=== PATIENT | female | born 1980 | race Caucasian/White ===

== ENCOUNTER 2018-06-27 18:19 | Inpatient (IN) | payer OTHER ==
[~2018-06-27] VITALS: Ht 172.7 cm; Wt 97.2 kg
[2018-06-27 19:15] VITALS: BP 131/90
--- NOTE | 2018-06-27 19:15 | NUR ---
HAND-OFF: Report given to Trudy.
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
--- NOTE | 2018-06-27 19:39 | NUR ---
ED Nurse Note: Labs drawn
[2018-06-27 19:49] LABS: BASOPHILS % (AUTO) 1.4 % (0.0-2.0); HEMATOCRIT 39.2 % (37.0-47.0); HEMOGLOBIN 13.1 G/DL (12.0-16.0); LYMPHOCYTES % (AUTO) 12.2 % (20.0-45.0); MEAN CORPUSCULAR VOLUME 84 FL (80-99); MONOCYTES % (AUTO) 6.1 % (1.0-10.0); NEUTROPHILS % (AUTO) 79.3 % (45.0-75.0); PLATELET COUNT 281 K/UL (150-450); RED BLOOD COUNT 4.68 M/UL (4.20-5.40); RED CELL DISTRIBUTION WIDTH 11.8 % (11.6-14.8); WHITE BLOOD COUNT 13.1 K/UL (4.8-10.8)
[2018-06-27 20:09] LABS: ANION GAP 8 mmol/L (5-15); BLOOD UREA NITROGEN 6 mg/dL (7-18); CALCIUM 9.3 MG/DL (8.5-10.1); CARBON DIOXIDE 29 MMOL/L (21-32); CHLORIDE 102 MMOL/L (98-107); CREATININE 0.8 MG/DL (0.55-1.30); POTASSIUM 4.1 MMOL/L (3.5-5.1); SODIUM 139 MMOL/L (136-145)
[2018-06-27] MEDS ORDERED: IBUPROFEN600 MG ORAL (20:12)
[2018-06-27] MEDS ORDERED: ACETAMINOPHEN325 M1 ORAL (20:12)
[2018-06-27] MEDS ORDERED: METHOCARBAMOL500 M1 PO (20:12)
[2018-06-27] MEDS ORDERED: DOCUSATE SODIU100 M2 ORAL (20:12)
[2018-06-27] MEDS ORDERED: ROXICODONE5 MG ORAL (20:13)
[2018-06-27 20:14] LABS: ALANINE AMINOTRANSFERASE 40 U/L (12-78); ALBUMIN 3.9 G/DL (3.4-5.0); ALBUMIN/GLOBULIN RATIO 1.2 (1.0-2.7); ALKALINE PHOSPHATASE 53 U/L (46-116); ASPARTATE AMINO TRANSFERASE 22 U/L (15-37); BILIRUBIN,TOTAL 0.4 MG/DL (0.2-1.0)
--- NOTE | 2018-06-27 20:15 | NUR ---
ED Nurse Note: Pt resting comfortably. Showing no signs of distress. Will continue to monitor.
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
--- NOTE | 2018-06-27 20:23 | NUR ---
ED Nurse Note: Pt transferred to 3E [facility]. All belongings taken with patient. Pt transferred by geoscience professor. Showing no signs of distress. VSS. Dr. Carrillo assessed in ED before transferred.
--- NOTE | 2018-06-27 20:26 | NUR ---
ED Nurse Note: Report given to ADRIANNA Arana. CT results still pending, OK from MD to take pt upstairs.
[2018-06-27 20:34] LABS: APPEARANCE,URINE CLEAR; BILIRUBIN, URINE NEGATIVE (NEGATIVE); COLOR,URINE PALE YELLOW; GLUCOSE, URINE (UA) NEGATIVE (NEGATIVE); KETONES,URINE NEGATIVE (NEGATIVE); LEUKOCYTE ESTERASE ,URINE NEGATIVE (NEGATIVE); NITRITE,URINE NEGATIVE (NEGATIVE); PH,URINE 6 (4.5-8.0); PROTEIN,URINE NEGATIVE (NEGATIVE); UROBILINOGEN,URINE NORMAL MG/DL (0.0-1.0)
--- NOTE | 2018-06-27 20:34 | NUR ---
is here now.
[2018-06-27 20:45] VITALS: BP 107/61
--- NOTE | 2018-06-27 20:45 | NUR ---
NURSE NOTES: Received report from ED RN Fariha is aaox4. VSS, neuro checks wnl. Pain 11/20 left rear head and right ribs. Excoriations noted left arm. Photos to be taken. Ibuprofen given for pain . Oriented to room. Side rails upx2, steady gait. IV site patent. Seen by Dr. Carrillo, orders placed. Bed low, call light within reach.
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
[2018-06-27] MEDS ORDERED: Tylenol #3 tab (300mg/30mg) ORAL PRN (21:15)
[2018-06-27] MEDS ORDERED: Docusate 100mg cap ORAL PRN (21:24)
--- NOTE | 2018-06-27 21:32 | Diagnostic Imaging Report ---
EXAM: XR Chest, 1 View CLINICAL HISTORY: PAIN TECHNIQUE: Frontal view of the chest. COMPARISON: None FINDINGS: Lungs: Unremarkable. No consolidation. Pleural space: Unremarkable. No pneumothorax. Heart: Unremarkable. No cardiomegaly. Mediastinum: Unremarkable. Bones/joints: Unremarkable. IMPRESSION: Normal chest x-ray.
--- NOTE | 2018-06-27 23:00 | NUR ---
NURSE NOTES: EXCORIATIONS NOTED LEFT ARM. PHOTOS UPLOADED. SILVADENE OINTMENT APPLIED PER MD ORDER, DRESSINGS CHANGED.
[2018-06-27] MEDS: ceFAZolin sod 1 GM in D5W 55 ML IVPB SCH (23:30)
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
[2018-06-28] VITALS: BP 96/58
[2018-06-28 04:00] VITALS: BP 102/54
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
--- NOTE | 2018-06-28 07:20 | NUR ---
NURSE NOTES:WALKING ROUNDS DONE WITH COCO RODAS.PATIENT SITTING IN BED,A/OX4,ROOM AIR,C/O HEADACHE MOSTLY AT THE BACK OF HER HEAD,CLAIMS ITS MORE WHEN SHES TALKING MORE THAN 10 MINUTES AND WALKING.PAIN REGIMEN DISCUSSED WELL PLAN OF CARE FOR THE DAY.
--- NOTE | 2018-06-28 07:48 | NUR ---
HAND-OFF: Report given to ADRIANNA Ojeda. Patient stable.
[2018-06-28 08:00] VITALS: BP 117/71
[2018-06-28] MEDS: ceFAZolin sod 1 GM in D5W 55 ML IVPB SCH ×2 (08:02→20:01)
[2018-06-28 11:50] VITALS: BP 116/65
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
--- NOTE | 2018-06-28 13:45 | NUR ---
NURSE NOTES:BACK FRRob MRI,AKI.
--- NOTE | 2018-06-28 14:15 | NUR ---
Patient is independent in all mobility and has a stable gait pattern. Patient was instructed on HEP's (ankle pumps, quad sets, gluteal sets, shoulder shrugs, deep breathing) and to progressively increase time OOB and ambulation as tolerated. Patient c/o photophobia; instructed to ambulate in her room as tolerated and to ask friends or family to purchase sunglasses for her to use. Patient does not need any physical therapy f/u treatments at this time. Addendum: 06/28/18 at 1416 by EDVIN BERNARDO PT Amended: Links added.
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
[2018-06-28 15:50] VITALS: BP 127/79
--- NOTE | 2018-06-28 17:30 | NUR ---
NURSE NOTES:TX. DONE TO ABRASIONS ON LEFT FOREARM/LEFT UPPER BACK WITH SILVADENE CREAM
--- NOTE | 2018-06-28 19:23 | NUR ---
HAND-OFF: Report given to CHRISTINE RODAS.PATIENT STABLE.
--- NOTE | 2018-06-28 19:25 | NUR ---
NURSE NOTES: Received report & pt from ADRIANNA Ojeda. Pt lying in bed, a&ox4, in room air. No s/s of acute distress & c/o 10/11 pain & pt requesting for Ibuprofen. Will give PRN Advil when due. Wound dressings C/D/I. IV site intact & S/L'd. Bed in lowest position, call light within reach. Will continue to monitor.
[2018-06-28 20:00] VITALS: BP 116/71
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
[2018-06-29 04:55] VITALS: BP 108/61
--- NOTE | 2018-06-29 07:11 | NUR ---
HAND-OFF: Report given to ADRIANNA Ojeda. Pt in stable condition. Rounds done with EROS RODAS.
--- NOTE | 2018-06-29 07:11 | NUR ---
NURSE NOTES:BEDSIDE ROUNDS DONE WITH NIGHT RN (CHRISTINE),PATIENT LYING ON HER LEFT SIDE DOZING,C/O HEADACHE 05/11 AND REQUESTED FOR ADVIL.MEDICATED BY NIGHT RN.PLAN OF CARE FOR THE DAY DISCUSSED,NEURO STATUS A/OX4,ROOM AIR.
[2018-06-29] MEDS: ceFAZolin sod 1 GM in D5W 55 ML IVPB SCH ×2 (07:59→20:03)
[2018-06-29 08:00] VITALS: BP 128/70
[2018-06-29] MEDS ORDERED: D5 1/2NS 1000ml IV ONE (08:38)
[2018-06-29] MEDS ORDERED: Tubing IV Secondary IV ONE (08:38)
[2018-06-29 12:00] VITALS: BP 112/64
[2018-06-29 16:00] VITALS: BP 119/70
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
--- NOTE | 2018-06-29 19:15 | NUR ---
HAND-OFF: Report given to CHRISTINE RODAS.PATIENT STABLE.
--- NOTE | 2018-06-29 19:16 | NUR ---
NURSE NOTES: Received report & pt from ADRIANNA Ojeda. Pt lying in bed, a&ox4, in room air. No s/s of acute distress & c/o 10 pain & will give PRN pain med when due. Wound dressings C/D/I. IV site intact & S/L'd. Bed in lowest position, call light within reach. Will continue to monitor.
[2018-06-29 20:00] VITALS: BP 108/68
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
[2018-06-30 04:00] VITALS: BP 112/62
--- NOTE | 2018-06-30 07:14 | NUR ---
NURSE NOTES:BEDSIDE ROUNDS DONE WITH CHRISTINE RODAS.PATIENT SLEEPING ON HER LEFT SIDE,ROOM AIR,BED AKI BALLESTEROS.
--- NOTE | 2018-06-30 07:14 | NUR ---
HAND-OFF: Report given to ADRIANNA Ojeda. Pt in stable condition. Rounds done.
[2018-06-30 08:00] VITALS: BP 116/64
--- NOTE | 2018-06-30 09:00 | NUR ---
NURSE NOTES:VENOUS DUPLEX RIGHT LEG DONE,PATIENT REFUSED FOR LEFT LEG.PATIENT A/OX4,AFFECT MORE PLEASANT TODAY,INITIATING CONVERSATION, CLAIMS HEADACHE NOT GETTING WORSE,ABRASION IN LEFT FOREARM DRY AND PINKISH/REDDISH LOOKING.LEFT UPPER BACK SLOWLY RESOLVING.TX DONE.
[2018-06-30] MEDS: ceFAZolin sod 1 GM in D5W 55 ML IVPB SCH ×2 (09:10→20:49)
--- NOTE | 2018-06-30 13:44 | NUR ---
CASE MANAGEMENT:REVIEW 06/30/18 SI: HEAD TRAUMA. DIZZINESS. PHOTOPHOBIA 98.1 70 18 116/64 99% ON RA IS: IV ANCEF Q12 MOTRIN PO BID PRN TYLENOL #3 PO Q6HRS PRN : MED/SURG STATUS 3 EAST
--- NOTE | 2018-06-30 16:13 | NUR ---
*-* INSURANCE *-* ALL CLINICALS HAVE BEEN FAXED TO: [employer] [id number] [place] [id number]
--- NOTE | 2018-06-30 16:15 | NUR ---
INSURANCE FAXED WAS NEVER RECEIVED TRANSMISSION SPECIALIST RE-FAXED INFORMATION TO TONY AT [employer] T: [phone] F: [phone]
[2018-06-30 16:50] VITALS: BP 122/66
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
--- NOTE | 2018-06-30 19:17 | NUR ---
HAND-OFF: Report given to CHRISTINE RODAS.PATIENT STABLE.
--- NOTE | 2018-06-30 19:18 | NUR ---
NURSE NOTES: Received report & pt from ADRIANNA Ojeda. Pt lying in bed, a&ox4, in room air. No s/s of acute distress & c/o 3/10 pain. Wound dressings C/D/I. Transdermal patch on to be removed @ 2109. IV site intact & S/L'd. Bed in lowest position, call light within reach. Will continue to monitor.
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
[2018-06-30 20:00] VITALS: BP_SYST 127; BP_SYST 148; BP_DIAS 72; BP_DIAS 85
[2018-07-01] MEDS ORDERED: Cephalexin 500mg cap ORAL SCH
[2018-07-01 04:00] VITALS: BP 120/70
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
--- NOTE | 2018-07-01 07:30 | NUR ---
HAND-OFF: Report given to ADRIANNA Robertson. Rounds done. Pt in stable condition.
--- NOTE | 2018-07-01 07:42 | NUR ---
NURSE NOTES: Pt sleeping , no concerns verbalized at this time. Call light in reach
[2018-07-01 08:00] VITALS: BP 127/65
[2018-07-01] MEDS: ceFAZolin sod 1 GM in D5W 55 ML IVPB SCH ×4 (08:34→10:24)
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
--- NOTE | 2018-07-01 08:44 | NUR ---
NURSE NOTES: Pt refused placement of lidoderm patch. [employer] applied to right side of rib as directed by pt. Pt then stated to remove patch and apply closer to spine. [employer] readjusted patch, " I don't think I want it there" [employer] explained that the patch has adhesive and may not stay on properly after repeated adjustment. " I do not even want to be bothered with that right now , take it off" Risk and benefits explained. [employer] asked why a higher dose of pain medication did not want to be taken? Per pt she was unable to sleep because of pain. " I do not like codeine " [employer] will follow up with pain
--- NOTE | 2018-07-01 08:55 | NUR ---
NURSE NOTES: Pt refused antibiotic at this time, will return . Pt spoke to Neurologist on case gave orders, for Physical Therapy and Nortriptyline 10 mg po qhs
--- NOTE | 2018-07-01 09:15 | Diagnostic Imaging Report ---
Indication: Knee pain. Trauma Technique: MRI of the right knee was imaged in a 1.5 Tabitha magnet. Pulse sequences obtained include coronal T1 fast spin-echo, STIR, sagittal coronal and axial proton fast spin-echo with fat saturation, sagittal proton fast spin-echo. Comparison: None Findings: Bone marrow signal is normal. No fracture identified. There is no joint effusion. Articular cartilage is well preserved. Alignment is normal. The medial lateral menisci, anterior and posterior cruciate ligaments appear normal. The medial collateral ligamentous complex is normal. Lateral collateral ligamentous complex is normal. There is a mild amount of subcutaneous edema in the medial part of the knee. Extensor tendon mechanism is normal. IMPRESSION: Negative MRI of the right knee.
--- NOTE | 2018-07-01 09:53 | Diagnostic Imaging Report ---
Indication: Shoulder pain. Trauma Technique: MRI of the right shoulder obtained in a 1.5 Tabitha magnet. Pulse sequences obtained include axial and coronal proton fast spin-echo with fat saturation, sagittal T1 fast spin-echo, sagittal and coronal T2 fast spin-echo with fat saturation. Findings: There is a focus of a intermediate signal intensity within the distal portion of the infraspinatus tendon at the footprint. Suspect underlying tendinopathy. Part of this could be magic angle phenomenon (artifact). There is no retraction. The remainder of the rotator cuff tendons including supraspinatus appear normal. There is no fluid within the subacromial bursa or joint space. The long head of the biceps tendon appears normal. The biceps anchor and attachment appear normal. Bone marrow signal is normal. There is a linear signal focus at the acromion consistent with os acromiale he. AC joint is unremarkable. IMPRESSION: Suspect of mild tendinopathy in the area of the infraspinatus tendon attachment. Correlate clinically. Part of this may be due to magic angle phenomenon. Os acromiale
[2018-07-01 12:00] VITALS: BP 121/68
--- NOTE | 2018-07-01 14:37 | NUR ---
CASE MANAGEMENT:REVIEW 07/01/18 SI: RT SHOULDER AND RT KNEE PAIN POSSIBLE ROTATOR CUFF TEAR VS TRAUMATIC BURSITIS 98.1 61 20 121/68 100% ON RA IS: PAMELOR PO QHS LIDOCAINE PATCH QD IV ANCEF Q12 SILVADENE CREAM TYLENOL #3 PO Q6HRS PRN MED/SURG STATUS 3 EAST PLAN: 3 ANGUS MRI OF BRAIN TRANSFER TO [facility] [phone]) [address] [facility] [address] VIA [employer] TRANSPORTATION FOR 3 ANGUS MRI BRAIN SCHEDULED FOR 5PM MRI JORDANARN, CHARGE NURSE IS HANDLING ALL OF THE ABOVE
--- NOTE | 2018-07-01 14:49 | NUR ---
PT EVALUATION NOTE Received MD order for PT evaluation. Patient previously evaluated by PT on 06/28 and was found to be independent with all functional mobility. This therapist visited the patient and the patient states that her mobility is fine and that she does not need any PT intervention at this time. No further PT follow-up warranted at this time.
--- NOTE | 2018-07-01 15:25 | NUR ---
*-* INSURANCE *-* UPDATED CLINICALS AND REVIEWS HAVE BEEN FAXED TO: [employer] T: [phone] F: [phone]
--- NOTE | 2018-07-01 16:15 | NUR ---
NURSE NOTES: Pt left facility for MRI under MD directions
--- NOTE | 2018-07-01 17:06 | NUR ---
NURSE NOTES: Upon this writing pt has not returned from out pt MRI
--- NOTE | 2018-07-01 18:19 | NUR ---
NURSE NOTES: Upon this writing pt has not returned from out patient [facility]
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
--- NOTE | 2018-07-01 19:38 | NUR ---
NURSE NOTES: Pt returned from [facility] at end of shift, accompanied by bulk tank driver via wheelchair. Stable condition. Dinner saved . Dr Carrillo here gave orders to oncoming nurse
--- NOTE | 2018-07-01 19:39 | NUR ---
HAND-OFF: Report given to Serge RODAS Dr made awre of refusal of Tylenol with nahomiiene stated to give regular Tylenol.
--- NOTE | 2018-07-01 19:40 | NUR ---
NURSE NOTES: Report taken from ADRIANNA Robertson. Patient returned to the floor at 1930 from MRI at [place]. Patient awake and seated in chair, A&Ox4. Skin abrasions noted on left arm on wrist, elbow and posterior shoulder, pictures taken, no other skin issues present. IV site c/d/i and patent, no fluids running. changed order, stated OK to give regular tylenol for entire pain scale. Ordered X-ray for Rt shoulder in AM. Bed in lowest position, call light within reach.
[2018-07-01 20:00] VITALS: BP 116/71
[2018-07-01] MEDS: Nortriptyline 10mg cap ORAL SCH (20:33)
[2018-07-01] MEDS: Cephalexin 500mg cap ORAL SCH (20:34)
[2018-07-02] MEDS: Cephalexin 500mg cap ORAL SCH ×5 (00:29→23:39)
[2018-07-02 04:00] VITALS: BP 111/67
--- NOTE | 2018-07-02 07:51 | NUR ---
HAND-OFF: Report given to ADRIANNA Robertson. Patient is asleep in bed, VS stable, no signs of distress.
[2018-07-02 08:00] VITALS: BP 101/60
--- NOTE | 2018-07-02 08:05 | NUR ---
NURSE NOTES: Pt stated that Nortriptyline was effective in helping her sleep. Mood elevated today, in comparison to yesterday. Made eye contact while speaking. Bed is in safe position. Xray to right shoulder pending
--- NOTE | 2018-07-02 08:43 | NUR ---
RADIOLOGY DEPT., PT STATES, "NO PAIN IN SHOULDER THIS MORNING COMPARING TO YESTERDAY AFTER MRI". PT FEELS SHOULDER EXAM IS NOT NEEDED DUE TO ABILITY TO RAISE AND MOVE ARM AROUND COMPLETELY WITHOUT ANY PAIN.-DAYA
--- NOTE | 2018-07-02 10:39 | NUR ---
NURSE NOTES: Pt refused skin treatment to healing abrasions to left shoulders, xray pending at this time
--- NOTE | 2018-07-02 10:41 | NUR ---
NURSE NOTES: pt will like Lidoderm patch placed later on
[2018-07-02 12:00] VITALS: BP 133/67
--- NOTE | 2018-07-02 14:27 | NUR ---
*-* INSURANCE *-* UPDATED CLINICALS HAVE BEEN FAXED TO: [employer] T: [phone] F: [phone]
--- NOTE | 2018-07-02 14:58 | Diagnostic Imaging Report ---
APPROVED REPORT CPT Code: 43750 Present Symptoms Comments: Pain and swelling RIGHT LEG: Venous imaging reveals a patent deep venous system. There is no evidence of thrombus within the femoral, popliteal or tibial segments. The greater saphenous vein is also within normal limits. Doppler indicates normal spontaneous flow within these segments. Note: There is no evidence of thrombus within the left common and superficial femoral veins. The remaining segments were not imaged due to pain.
[2018-07-02 16:00] VITALS: BP 145/55
[2018-07-02] MEDS ORDERED: NS 500ML ONE (16:46)
--- NOTE | 2018-07-02 18:00 | NUR ---
NURSE NOTES: Pt displayed anxious bx pt indecisive about plan of care will refuse treatment or medication then place call light on to agree with treatment or medication offered. Pt appears withdrawn and depressed, but denies feelings of depression. " I just had a bad day yesterday. Wound care refused earlier in shift provided at 1745, pt refused shower. Appearance disheveled. No presence of odor. Clean linen provided as well as towels and soap. " Maybe tomorrow she stated" Current plan of care will be followed, . Denies nausea or vomiting related to antibiotic use. Skin is clear with exception of abrasions.
--- NOTE | 2018-07-02 19:30 | NUR ---
NURSE NOTES: Received report from ADRIANNA Robertson and rounds done. Received pt sitting up in bed, AOX4, c/o headache 10/11, will medicate for pain. No distress noted. IV R AC #20 patent and intact. Bed in lowest position and locked, side rails up x 2, call light within reach. Will continue to monitor.
[2018-07-02 20:00] VITALS: BP 136/73
--- NOTE | 2018-07-02 20:46 | NUR ---
HAND-OFF: Report given to Arnulfo RODAS.
[2018-07-02] MEDS: Nortriptyline 10mg cap ORAL SCH (20:54)
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
--- NOTE | 2018-07-03 03:15 | Progress Note ---
DATE: 07/02/2018 SUBJECTIVE: The patient had MRI of her knee and her shoulder. She is still having pain in the right shoulder and knee. Otherwise, no other change in her medical status. PHYSICAL EXAMINATION: GENERAL: The patient is resting comfortably on bed. VITAL SIGNS: Afebrile. Stable vital signs. EXTREMITIES: Right leg examination shows ecchymosis, which appears to be resolving. She does have pain on the anterior aspect knee medial joint line. Right shoulder examination shows acromioplasty. Neer impingement sign. Pain with testing. MRI of the right shoulder was reviewed and shows some tendinopathy of the supraspinatus. It appears to be signal focus at the acromion consistent with along the distal insertion of the supraspinatus consistent with tendinopathy. MRI of the right knee shows no meniscal or ligament damage. ASSESSMENT: 1. Right shoulder traumatic bursitis, tendinitis, possible symptomatic . 2. Right knee contusion. DISCUSSION: At this point, based on the MRI what I recommend is physical therapy. If she still has issues, upon followup, further recommendations can be made including injection in the right knee as well as shoulder. At this point, I will see the patient as an outpatient for further care and recommendations. Siddharth Anderson M.D. DR: QUIN JOB#: [id number] CC:
[2018-07-03] MEDS: Cephalexin 500mg cap ORAL SCH ×2 (06:00→13:15)
--- NOTE | 2018-07-03 06:22 | NUR ---
NURSE NOTES: Pt refused midnight, this am vital signs, and refused Keflex medication. Pt states she wants to sleep and doesn't want to be disturbed.
--- NOTE | 2018-07-03 07:36 | NUR ---
NURSE NOTES: Pt up throughout evening per report of outgoing nurse. Call light is in reach. Pt able to verbalize known needs
--- NOTE | 2018-07-03 07:37 | NUR ---
HAND-OFF: Report given to ADRIANNA Robertson. Pt in stable condition.
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
--- NOTE | 2018-07-03 07:56 | NUR ---
NURSE NOTES: Pt requested Advil for headache. Covered eyes as staff writer room. Room is dark blinds are down. Pt states she is sensitive to light and sound. Door was closed. Pain patch offered with refusal. " I would like my cream now, the Dr came to see me specifically at Midnight , about my arm" Outgoing nurse reported that pt complained of itching to area. 2nd and 3rd abrasions are closed, no presence of open areas, Large abrasion, to upper shoulder has drainage area is moist. No odor, . Pt refused for area to be covered. " I will keep all of them open to air. Pt informed that large abrasion , as an increase amount of drainage of bandage in comparison to yesterday, staff writer recommended site to be covered for infection control. Pt began rubbing her forehead, and pulling on her head. Geographic Information Systems Director at that time asked if she had an history of anxiety , which she denied. Pt mood varies from anxious, irritable, to withdrawn , not making eye contact as she speaks. Call light placed in reach. Door closed
[2018-07-03 08:00] VITALS: BP 127/70
--- NOTE | 2018-07-03 09:58 | NUR ---
NURSE NOTES: Per pt headache 07/11 after advil. Ice pack given . insurance underwriter offered to close curtain to provide additional dimness to room. Pt refused. Laying in bed rocking.
--- NOTE | 2018-07-03 10:59 | NUR ---
CASE MANAGEMENT:REVIEW 07/02/18 SI: RT SHOULDER AND RT KNEE PAIN POSSIBLE ROTATOR CUFF TEAR VS TRAUMATIC BURSITIS 98.1 68 18 136/73 100% on ra IS: PAMELOR PO QHS KEFLEX PO Q6HRS LIDOCAINE PATCH QD SILVADENE CREAM TYLENOL #3 PO Q6HRS PRN MED/SURG STATUS 3 EAST
[2018-07-03 12:00] VITALS: BP 121/72
[2018-07-03 16:00] VITALS: BP 153/77
--- NOTE | 2018-07-03 16:56 | NUR ---
NURSE NOTES: Patient is sitting up at the edge of the bed awake and able to verbalize needs. Patient is stable. Denies pain or SOB at this time. Patient encouraged to use call light for assistance, verbalized understanding. Patient is comfortable in bed with call light within reach. WIll continue to monitor.
--- NOTE | 2018-07-03 17:47 | NUR ---
NURSE NOTES: report given to Aria
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
--- NOTE | 2018-07-03 19:30 | NUR ---
HAND-OFF: Report given to Kike RODAS. Patient is stable.
--- NOTE | 2018-07-03 19:50 | NUR ---
NURSE NOTES: Received bedside report from Christine. Pt is resting in bed, resp even. No distress noted, resting comfortably. Denies pain at this time. Instructed to call for assistance at anytime, call light with in reach.
[2018-07-03 20:00] VITALS: BP 108/56
[2018-07-03] MEDS: Nortriptyline 10mg cap ORAL SCH (21:11)
[2018-07-04 04:00] VITALS: BP 108/60
[2018-07-04 06:13] LABS: APPEARANCE,URINE CLEAR; BILIRUBIN, URINE NEGATIVE (NEGATIVE); COLOR,URINE PALE YELLOW; GLUCOSE, URINE (UA) NEGATIVE (NEGATIVE); KETONES,URINE NEGATIVE (NEGATIVE); LEUKOCYTE ESTERASE ,URINE 1+ (NEGATIVE); NITRITE,URINE NEGATIVE (NEGATIVE); PH,URINE 7 (4.5-8.0); PROTEIN,URINE NEGATIVE (NEGATIVE); UROBILINOGEN,URINE NORMAL MG/DL (0.0-1.0)
--- NOTE | 2018-07-04 07:05 | NUR ---
HAND-OFF: Bedside report given to Christine RN, pt resting in bed comfortably at this time. Call light within reach.
--- NOTE | 2018-07-04 07:30 | NUR ---
NURSE NOTES: Patient is in bed awake and able to verbalize needs. Patient is stable. Denies pain or SOB at this time. Patient encouraged to use call light for assistance, verbalized understanding. Plan of care discussed with patient. Patient is in good spirits with call light within reach. Will continue to monitor.
--- NOTE | 2018-07-04 09:00 | NUR ---
NURSE NOTES: Patient refused lidoderm patch. Patient aware of all risks and benefits. Patient continued to refuse. Patient does not complain of any pain or discomfort at this time. Patient is comfortable in bed with call light within reach. Will continue to monitor.
[2018-07-04 13:45] VITALS: BP 114/75
--- NOTE | 2018-07-04 13:45 | NUR ---
CASE MANAGEMENT:REVIEW 07/04/18 SI: RT SHOULDER AND RT KNEE PAIN POSSIBLE ROTATOR CUFF TEAR VS TRAUMATIC BURSITIS 98.0 60 20 108/60 94% ON RA IS: PAMELOR PO QHS KEFLEX PO Q6HRS LIDOCAINE PATCH QD SILVADENE CREAM TYLENOL #3 PO Q6HRS PRN MED/SURG STATUS 3 [facility]
--- NOTE | 2018-07-04 15:30 | NUR ---
CHARGE NURSE NOTES: Received a call from [facility], pt is accepted on Saturday & they will provide transportation to citrus picker pt.
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
--- NOTE | 2018-07-04 18:00 | NUR ---
NURSE NOTES: Patient refused silvadene application until later in the shift. Will continue to monitor.
--- NOTE | 2018-07-04 18:30 | NUR ---
NURSE NOTES: RN asked patient if she has difficulty sleeping. She replied that she sleeps so much during the day that she cannot fall asleep at night. When RN asked if patient has difficulty falling asleep, patient stated, "no". Will continue to monitor.
--- NOTE | 2018-07-04 19:00 | NUR ---
NURSE NOTES: Patient asked for silvadene application. WIll apply as ordered. Abrasians are clean and dry. Dr. Carrillo asked for medical records from [facility]. Faxed medical records request form to [facility].
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
--- NOTE | 2018-07-04 19:30 | NUR ---
HAND-OFF: Report given to Arnulfo RODAS. Patient is stable.
--- NOTE | 2018-07-04 19:30 | NUR ---
NURSE NOTES: Received report from ADRIANNA King and rounds made. Received pt sitting up in bed, AOX4, denies any pain, no distress noted. Bed in lowest position and locked, side rails up x 2, call light within reach. Will continue to monitor.
[2018-07-04 20:00] VITALS: BP 125/78
[2018-07-04] MEDS: Nortriptyline 10mg cap ORAL SCH (20:15)
--- NOTE | 2018-07-04 23:30 | NUR ---
NURSE NOTES: Pt showered safely back in the room no distress noted. Will continue to monitor.
--- NOTE | 2018-07-05 07:18 | NUR ---
HAND-OFF: Report given to ADRIANNA Lorenzo. Pt in stable condition.
[2018-07-05 08:00] VITALS: BP 126/86
--- NOTE | 2018-07-05 08:01 | NUR ---
NURSE NOTES: Received pt from ADRIANNA Arredondo, pt was resting comfortably no acute distress, call light w/in reach.
--- NOTE | 2018-07-05 19:23 | General Progress Note ---
Progress Note Progress Note VLADIMIR FINE MD PROGRESS NOTE DATE OF EXAM: 07/05/2018 PATIENT IS DOING THE SAME AWAIT TRANSFER TO THE [facility]UR[facility] INPATIENT REHAB NO FEVER HAS AHD SOME UNUSAL FEELING INTHE LEFT OF STOMACH LASTING 3 SECONDS HASA HEADACHE SITS INTEH DARK ROOM THE LIGHT BOTHERS HER. NO VOMITING TODAY VITAL SIGN REVIEWED NO JVD CTA S1,S2RRR SOFT IMPRESSION: TRAUMATIC BREAIN INJURY SEEN NEUROLOGY HEAD TRAUMA DIZZINESS AND HEADACHE MULTIPLE ABRSION GETTING WOUND TREATMETN TO BE SEND TO INPATIENT REHAB. Vladimir Carrillo MD July 05, 2018 19:23
[2018-07-05 20:00] VITALS: BP 115/70
[2018-07-05] MEDS: Nortriptyline 10mg cap ORAL SCH (20:26)
--- NOTE | 2018-07-05 20:51 | NUR ---
recvd report from day shift nurse; pt in bed a/o x 4; no SOB; no s/s of infection; VSS; safety precautions in place; bedside table/call light within reach/ bed at lowest position will continue to monitor.
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
--- NOTE | 2018-07-06 07:30 | NUR ---
NURSE NOTES: Patient lying in bed awake. No complain of pain or distress at this time. Skin intact and dry. Wound dressing and IV dressing intact and dry. Bed lowest position. Call light within reach. Will continue to monitor.
[2018-07-06 08:00] VITALS: BP 123/71
[2018-07-06 12:00] VITALS: BP 121/69
[2018-07-06 16:00] VITALS: BP 114/64
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
--- NOTE | 2018-07-06 16:15 | NUR ---
NURSE NOTES: Called [facility] for medical record but no answer. Will try again.
--- NOTE | 2018-07-06 19:40 | NUR ---
HAND-OFF: Report given to Acacia RODAS. Patient in stable condition.
--- NOTE | 2018-07-06 19:50 | NUR ---
NURSE NOTES: Received pt from ADRIANNA plasencia. pt awake, alert, and talkative. Bed in lowest position. Call light within reach. Will continue to monitor.
[2018-07-06 20:00] VITALS: BP 135/92
[2018-07-06] MEDS ORDERED: Nortriptyline 25mg cap ORAL SCH (21:00)
--- NOTE | 2018-07-06 22:00 | NUR ---
NURSE NOTES: Dressing on L. upper extremity cleaned and changed. Primary MD came to see her and informed her of her discharge for tomorrow. Will continue to monitor.
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
--- NOTE | 2018-07-07 07:38 | NUR ---
NURSE NOTES: Received report from ADRIANNA Roger. Rounding done with outgoing nurse. Patient asleep. Bed in lowest position, call light within reach. Will continue to monitor.
[2018-07-07 08:00] VITALS: BP 137/68
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
--- NOTE | 2018-07-07 10:40 | NUR ---
NURSE NOTES: Dr. Carrillo ordered [facility] meds except for Zofran IV.
[2018-07-07] MEDS ORDERED: ACETAMINOPHEN325 M1 ORAL (10:42)
--- NOTE | 2018-07-07 10:42 | NUR ---
Social Service Note SW met with Ashley Edward who will be transferring patient to [facility] for continuation of care. Patient is in agreement with dc plan.
[2018-07-07] MEDS ORDERED: COLACE100 MG/10 ORAL (10:43)
[2018-07-07] MEDS ORDERED: ADVIL200 M2 ORAL (10:44)
[2018-07-07] MEDS ORDERED: LIDODERM700 M1 TOPIC (10:45)
[2018-07-07] MEDS ORDERED: NORTRIPTYLINE H25 M1 PO (10:48)
[2018-07-07] MEDS ORDERED: SILVER SULFADIA50 GM TP (10:49)
--- NOTE | 2018-07-07 11:15 | NUR ---
NURSE NOTES: Discharge instruction was given. Home meds were given. IV line was removed. [facility] ([facility]) was set up for the patient. Patient discharged with [facility] [employer] staff in stable condition.
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
== END 2018-07-07 11:15 | DRG 87 ==
LOC: EMR 19:06 → 3E 19:35 → EDBEDREQ 19:41
DX: S06.9X0A Unspecified intracranial injury without loss of consciousness, initial encounter (principal); V99.XXXA Unspecified transport accident, initial encounter; Y92.832 Beach as the place of occurrence of the external cause; G44.319 Acute post-traumatic headache, not intractable; F07.81 Postconcussional syndrome; T14.8XXA Other injury of unspecified body region, initial encounter; L08.9 Local infection of the skin and subcutaneous tissue, unspecified; R42 Dizziness and giddiness; M54.81 Occipital neuralgia; R25.2 Cramp and spasm; M54.2 Cervicalgia; M75.51 Bursitis of right shoulder; S80.01XA Contusion of right knee, initial encounter; S89.91XA Unspecified injury of right lower leg, initial encounter; F41.1 Generalized anxiety disorder; Z88.1 Allergy status to other antibiotic agents
CPT/HCPCS: 36415; 70450; 70551; 71045; 72141; 80053; 81001; 81025; 85025; 85379; 85610; 87081; 93971; 99285